=== PATIENT | male | born 1985 | race Two or more races ===

== ENCOUNTER 2024-11-30 18:05 | Emergency (ER) | payer MEDICAID, SELFPAY ==
[2024-11-30 19:33] VITALS: BP 131/76; PULSE 92; RESP 20; TEMP 36.7; O2SAT 95
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
[2024-11-30] MEDS: ACETAMINOPHEN 500 MG TABLET 1000 MG PO (20:11)
[2024-11-30] MEDS: LIDOCAINE HCL 1% 20 ML VIAL 10 ML INFL (20:12)
== END 2024-11-30 22:47 | disposition home or self-care (01) ==
PROVIDERS: Emergency Provider Emergency Medicine; PCP Family Medicine
DX: S01.81XA Laceration without foreign body of other part of head, initial encounter (principal); V28.49XA Other motorcycle driver injured in noncollision transport accident in traffic accident, initial encounter
CPT/HCPCS: 12011; 70450; 70486; 99284; J3490; A9270